=== PATIENT | male | born 1970 | race Caucasian/White ===

== ENCOUNTER 2019-05-14 20:55 | Inpatient (IN) | payer OTHER ==
[~2019-05-14] VITALS: Ht 180.3 cm; Wt 157.1 kg
[2019-05-14 21:01] VITALS: Ht 180.3 cm; Wt 157.1 kg
--- NOTE | 2019-05-14 21:10 | NUR ---
PT TO ED WITH C/O CHEST PAIN THAT RADIATES TO LEFT SHOULDER AND LEFT SIDE OF NECK. PT A&XO4,NO ACUTE DISTRESS NOTED, RESP EVEN AND UNLABORED. PT ALSO STATES TO SOME SOB WITH NAUSEA. PER PT, PT BEGAN HAVING SAME SYMPTOMS YESTERDAY LASTING APPROX 1 HOUR AND THEN TODAY STARTED APPROX 30 MINUTES PRIOR TO ARRIVAL. PT DENIES TAKING MEDICATIONS PRIOR TO ARRIVAL, DENIES TAKING MEDICATION YESTERDAY FOR PAIN THAT SUBSIDED ON IT'S OWN. PT STATES HE WAS WATCHING TV WHEN CP STARTED, AND DENIES INCREASE IN STRESS LEVEL AT HOME. PT A&OX4,NO ACUTE DISTRESS NOTED, RESP EVEN AND UNLABORED, LUNG SOUNDS ARE CLEAR TO ALL GARCIA. AT PT SIDE.
[2019-05-14 21:49] LABS: BASOPHIL % 0.5 % (0-2); PLATELET COUNT 232 x10^3mcL (130-400); RED CELL DISTRIBUTION WIDTH 13.1 % (11.5-14.5)
--- NOTE | 2019-05-14 22:09 | NUR ---
PT RESTING IN BED WITH AT BEDSIDE WITH NO SIGNS OF DISTRESS.
[2019-05-14 22:20] LABS: CALCIUM 8.5 mg/dL (8.5-10.1); CARBON DIOXIDE 26.2 mmol/L (21-32); CHLORIDE SERUM 105 mmol/L (98-107); CREATININE SERUM 1.1 mg/dL (0.7-1.3); GFR1 > 60 mL/min; GLUCOSE SERUM 125 mg/dL (74-106); POTASSIUM SERUM 4.2 mmol/L (3.5-5.1); SODIUM SERUM 142 mmol/L (136-145)
[2019-05-14] MEDS ORDERED: ZESTRIL20 MG PO (22:30)
[2019-05-14] MEDS ORDERED: BUSPIRONE HCL10 MG PO (22:31)
[2019-05-14 22:33] LABS: ALBUMIN 3.5 g/dL (3.4-5.0); ALKALINE PHOSPHATASE 84 U/L (46-116); ALT/SGPT 57 U/L (16-63); AST/SGOT 13 U/L (15-37); BILIRUBIN TOTAL 0.57 mg/dL (0.20-1.00); CHOLESTEROL 191 mg/dL (<200); CHOLESTEROL/HDL RATIO 7.1; HDL CHOLESTEROL 27 mg/dL (40-60); T4(THYROXINE) 7.6 ug/dL (4.7-13.3); TOTAL PROTEIN, SERUM 7.3 g/dL (6.4-8.2); TRIGLYCERIDES 337 mg/dL (<150)
[2019-05-14] MEDS ORDERED: BUPROPION HYDR200 M2 PO (22:33)
[2019-05-14] MEDS ORDERED: OLANZAPINE5 M2 PO ×2 (22:34→22:36)
[2019-05-14] MEDS ORDERED: PROZ20 PO (22:35)
--- NOTE | 2019-05-14 23:00 | NUR ---
REPORT GIVEN TO LEISA CASTANO.
[2019-05-14 23:34] VITALS: BP 117/68
--- NOTE | 2019-05-14 23:36 | NUR ---
RECEIVED PT FROM ED VIA NAKUL. ORIENTED PT TO ROOM AND SURROUNDINGS. IV NOTED TO LAC PATENT AND INTACT. TELE 15 PLACED ON PT READING NSR WITH BBB. INSTRUCTED PT ON THE USE OF CALL LIGHT FOR ASSISTANCE. ENDORSED PT TO PRIMARY NURSE CHINEDU
--- NOTE | 2019-05-14 23:40 | NUR ---
RECEIVED PT FROM EYAD BECKMAN. PT AOX4. DENIES LOPEZ/DIZZINESS. C/O CP, WILL MEDICATE PER EMAR. PT IN NO ACUTE DISTRESS. IV TO LAC, INTACT AND PATENT. CALL LIGHT WITHIN REACH. BE IN LOWEST POSITION. WILL CONTINUE TO MONITOR.
[2019-05-15 00:25] VITALS: BP 117/68
--- NOTE | 2019-05-15 03:58 | NUR ---
PT RESTING IN BED. RR EVEN AND UNLABORED. IN NO ACUTE DISTRESS. CALL LIGHT WITHIN REACH. WILL CONTINUE TO MONITOR.
[2019-05-15 06:15] VITALS: BP 106/65
--- NOTE | 2019-05-15 07:25 | NUR ---
RECEIVED PT IN NO ACUTE DISTRESS. RESTING IN BED. AAOX4. BREATHING EVEN AND UNLABORED ON 2L O2 VIA NC. DENIES LOPEZ OR CP OR PRESSURE. IVF INFUSING, NO REDNESS OR SWELLING TO IV SITE. BED IN LOW POSITION, CALL LIGHT WITHIN REACH. WILL CONTINUE TO MONITOR.
[2019-05-15 07:36] VITALS: BP 95/61
[2019-05-15 08:18] LABS: CALCIUM 8.8 mg/dL (8.5-10.1); CARBON DIOXIDE 28.6 mmol/L (21-32); CHLORIDE SERUM 106 mmol/L (98-107); CREATININE SERUM 1.1 mg/dL (0.7-1.3); GFR1 > 60 mL/min; GLUCOSE SERUM 90 mg/dL (74-106); MAGNESIUM 2.1 mg/dL (1.8-2.4); PHOSPHOROUS 4.7 mg/dL (2.5-4.9); POTASSIUM SERUM 4.7 mmol/L (3.5-5.1); SODIUM SERUM 145 mmol/L (136-145)
--- NOTE | 2019-05-15 09:17 | NUR ---
ECHOCARDIOGRAM COMPLETED.
[2019-05-15 12:09] VITALS: BP 91/55
--- NOTE | 2019-05-15 12:18 | NUR ---
PT RESTING IN BED. NO ACUTE DISTRESS. C/O MILD CHEST PAIN 2/10, NON-RADIATING. IVF INFUSING, NO REDNESS OR SWELLING NOTED. HOB ELEVATED. CALL LIGHT WITHIN REACH. WILL CONTINUE TO MONITOR.
--- NOTE | 2019-05-15 13:44 | NUR ---
DR. GOMEZ AT BEDSIDE TO EVALUATE PT.
--- NOTE | 2019-05-15 17:17 | NUR ---
PT IN NO ACUTE DISTRESS. AWAKE, ALERT, AND ORIENTED. VSS. AMBULATORY. DISCHARGE EDUCATION PROVIDED, PT VERBALIZED UNDERSTANDING. INSTRUCTED PT TO FOLLOW UP WITH PCP. IV DC'D WITH CATHETER INTACT. TELE REMOVED. BELONGINGS WITH PT. DAPHNE FLORES ACCOMPANIED PT TO LOBBY.
== END 2019-05-15 17:18 | disposition home or self-care (01) | DRG 303 ==
LOC: ED 20:55 → DU 22:43
PROVIDERS: Emergency Medicine; ADMIT Internal Medicine
DX: I25.119 Atherosclerotic heart disease of native coronary artery with unspecified angina pectoris (principal); Z68.42 Body mass index [BMI] 45.0-49.9, adult; I10 Essential (primary) hypertension; G47.33 Obstructive sleep apnea (adult) (pediatric); F17.210 Nicotine dependence, cigarettes, uncomplicated; F31.9 Bipolar disorder, unspecified; E78.5 Hyperlipidemia, unspecified; E66.01 Morbid (severe) obesity due to excess calories; Z79.899 Other long term (current) drug therapy
CPT/HCPCS: 83880; 85378; G0378; J2270; J2405; J7030